=== PATIENT | female | born 1995 | race Caucasian/White ===

== ENCOUNTER 2018-10-16 14:55 | Inpatient (IN) | payer SELFPAY ==
[2018-10-16 15:47] VITALS: BMI 29.4
[2018-10-16 16:29] LABS: BASO % 0.1 % (0.0-2.0); EOS % 0.3 % (0.0-4.0); HEMOGLOBIN 12.4 g/dL (11.0-16.0); LYMPH # 1.9 K/uL (1.0-4.3); MEAN CELL VOLUME 75.7 fL (81.0-99.0); MEAN CORPUSCULAR HGB CONC 31.8 g/dL (33.0-37.0); MEAN PLATELET VOLUME 8.3 fL (7.2-11.7); MONO # 0.7 K/uL (0.0-0.8); MONO % 5.9 % (0.0-10.0); NEUT # 9.3 K/uL (1.8-7.0); NEUT % 77.7 % (50.0-75.0); RBC 5.15 Mil/uL (3.80-5.20); RED CELL DISTRIBUTION WIDTH 18.5 % (11.5-14.5); SQUAMOUS EPITHIAL 1 /hpf (0-5); URINE BILIRUBIN NEGATIVE (NEGATIVE); URINE BLOOD NEGATIVE (NEGATIVE); URINE CLARITY Clear (Clear); URINE COLOR Yellow (YELLOW); URINE GLUCOSE (UA) NORMAL (Normal); URINE LEUKOCYTE ESTERASE NEG Leu/uL (Negative); URINE PROTEIN NEGATIVE (NEGATIVE); URINE UROBILINOGEN NORMAL mg/dL (0.2-1.0); WHITE BLOOD COUNT 11.9 K/uL (4.8-10.8)
[2018-10-16 16:42] LABS: BARBITURATES, UR NEGATIVE (NEGATIVE); BENZODIAZEPINES, UR NEGATIVE (NEGATIVE); OPIATES, UR NEGATIVE (NEGATIVE); PHENCYCLIDINE, UR NEGATIVE (NEGATIVE)
[2018-10-16] MEDS ORDERED: Lactated Ringer's 1,000 ML IV ONE (16:42)
[2018-10-16 16:57] LABS: ALB/GLOB RATIO 1.4 (1.0-2.1); ALBUMIN 3.9 g/dL (3.5-5.0); ALT/SGPT 9 U/L (9-52); AST/SGOT 24 U/L (14-36); BLOOD UREA NITROGEN 6 mg/dL (7-17); CALCIUM 9.2 mg/dl (8.6-10.4); GFR NON-AFRICAN AMERICAN > 60
[2018-10-16] MEDS ORDERED: Oxytocin 30 UNIT in NS 500 ml 30 UNITS/500 ML BAG IV ONE ×2 (17:26→17:55)
[2018-10-16 17:27] LABS: HEPATITIS B SURFACE AG Negative (NEGATIVE)
[2018-10-16] MEDS ORDERED: Lactated Ringer's 1,000 ML IV SCH (17:30)
[2018-10-16] MEDS ORDERED: Penicillin G 5 Million Unit Vial IVPB ONE ×2 (17:34→17:55)
[2018-10-16 17:38] LABS: RAPID PLASMA REAGIN NONREACTIVE (NONREACTIVE)
[2018-10-16] MEDS ORDERED: Fentanyl/Bupivacaine HCl 250 ML EPI ONE (18:26)
--- NOTE | 2018-10-16 18:29 | OBADHP ---
Datetime: 10/16/2018 15:42 Admit Comment, IP Provider: CC: Contractions HPI: Patient is a 22 year old at 38.5 weeks with REY of 10/26/18 by LMP (01/19/18), who presents to [facility] with complaints of contractiins that started last night. Patient states that her contraction s are 5-7 minutes apart lasting for 30 seconds. Patient admits to noted brownish discharge this morni ng. Patient endorses movement but denies leakage of fluid, vaginal bleeding, trauma. Patient a dmits to sexual activity 2 days ago. Care: Dr. Clemons OB Hx: G1: Current, no medical issues Rehabilitation Therapist Hx: Menarche: 13 [facility]: 15/regular/3-4 days Denies Hx of STDs, abnormal pap smear, fibroids and ovarian cyst or abdominal surgery PMHx: Denies PSHx: Denies FHx: Denies Medications: PNV and iron supplements Allergies: NKDA Social Hx: Lives with and mother. Unemployed. Denies any current or former tobacco, ETOH a nd illicit drug use A/P: : Patient is a 22 year old at 38.5 weeks with REY of 10/26/18 by LMP (01/19/18), who presen ts to [facility] with complaints of contractiins that started last night - EFM and TOCO - labs sent as per primary - UA: Negative - SVE - LR bolus - r/o Active labor: Over the course of observation, patient's pain increased in intensity with inf requent contractions. Decision was made by primary to admit to the unit - IV pitocin initiated to augment labor - LR @ 125CC/HR for maintenance fluid - CEFM and [place] - Anesthesia consult as per patient's request All plans and management as per Dr. Clemons and discussed with Dr. Placido Negrete, DO, PGY-2 Agree with above. Plan of care discussed with Dr. Cochran Extremities - PN: Normal Abdomen - PN: Normal Lungs - PN: Normal Heart - PN: Normal General - PN: Normal FHR - Baseline A Provider: 140 Comments, ACOG Physical Exam: Gen: NAD Cardio: RRR, +S1, +S2, no murmurs Pulm: CTA bilaterally, no rales, no wheezing or rhonci Abdomen: Soft, non-tender, gravid Ext: No edema, no cyanosis and no clubbing Gestation - Est Wks by US: 38.5 IP Chief Complaint: Uterine contractions NICHD Variability Prov Fetus A: Moderate 6-25bpm NICHD Accel Fetus A IP Provider: [id number] NICHD Decel Fetus A IP Provider: None Dilatation, Provider: 2 Effacement, Provider: 80 Station, Provider: -3 EGA AdmitDate IP: 38.4 IP Adm Impression: Term, intrauterine IP Admit Plan: Admit to unit; Initiate labor protocol
[2018-10-16] MEDS ORDERED: Lidocaine 2% MPF (5 ml) Inj ONE (18:55)
--- NOTE | 2018-10-16 20:55 | OBPN ---
Datetime: 10/16/2018 20:44 IP Procedures: Artificial ROM; Intrauterine Pressure Catheter IP Progress Plan: Continue present management FHR - Baseline A Provider: 140 IP Progress Note Comment: OB Hospitalist Note: FHR tracing reviewed- late vs early contractions Pt on L lateral side with o2 via facemask unable to monitor contractions- IUPC placed AROM - moderate meconium SVE: 3-/-2 Pitocin held- Dr. Clemons notified. Vital Signs Provider: Reviewed NICHD Accel Fetus A IP Provider: 15X15 NICHD Variability Prov Fetus A: Moderate 6-25bpm NICHD Decel Fetus A IP Provider: Early; Variable Datetime: 10/16/2018 15:42 Gestation - Est Wks by US: 38.5 Dilatation, Provider: 2 Effacement, Provider: 80 Station, Provider: -3
--- NOTE | 2018-10-16 21:48 | OBPN ---
Datetime: 10/16/2018 21:42 IP Progress Impression: Non-reassuring heart rate FHR - Baseline A Provider: 130 IP Progress Note Comment: OB Hospitalist Note: Tracing reviewed - variable decels down to 90 with recovery to baseline Pitocin held/Pt on L lateral side with O2 via facemask without improvement. Dr. Clemons notified of tracing and en route to hospital. Vital Signs Provider: Reviewed NICHD Accel Fetus A IP Provider: 15X15 FHR Category Provider Fetus A: Category II NICHD Variability Prov Fetus A: Moderate 6-25bpm NICHD Decel Fetus A IP Provider: Late; Variable
[2018-10-16] MEDS ORDERED: Morphine 1 mg/ml preservative-free Inj(Duramorph) ONE (22:16)
[2018-10-16] MEDS ORDERED: Sodium Bicarbonate (8.4%) 50 mEq Vial ONE (22:18)
--- NOTE | 2018-10-16 23:11 | OBPN ---
Datetime: 10/16/2018 23:09 IP Progress Impression: Normal progression of labor IP Procedures: Sterile Vag Exam Contraction Comments Provider: q1-4 FHR - Baseline A Provider: 130 IP Progress Note Comment: pt was examined at bed side ve fd/100/0 antocipaye pushing Vital Signs Provider: Reviewed; Within Normal Limits NICHD Accel Fetus A IP Provider: 15X15 NICHD Variability Prov Fetus A: Moderate 6-25bpm Dilatation, Provider: 10 Effacement, Provider: 100 Station, Provider: 0
--- NOTE | 2018-10-16 23:11 | OBADHP ---
Datetime: 10/16/2018 23:09 FHR - Baseline A Provider: 130 Contraction Comments Provider: q1-4 Vital Signs Provider: Reviewed; Within Normal Limits NICHD Variability Prov Fetus A: Moderate 6-25bpm NICHD Accel Fetus A IP Provider: 15X15 Dilatation, Provider: 10 Effacement, Provider: 100 Station, Provider: 0 Datetime: 10/16/2018 21:42 IP Hx Assessment: No Care FHR Category Provider Fetus A: Category II NICHD Decel Fetus A IP Provider: Late; Variable Datetime: 10/16/2018 15:42 EGA AdmitDate IP: 38.4
--- NOTE | 2018-10-16 23:13 | OBDS ---
DELIVERY PERSONNEL Delivery Doctor: Leticia Clemonst MD Anesthesiologist: Herbert MATERNAL INFORMATION Delivery Anesthesia: Epidural Provider Comments: dr froilan baby deliverd i n last end clean 9/9 no mcom LABOR SUMMARY EDC: 10/26/2018 00:00 No. Babies in Womb: 1 Attempted: No Labor Anesthesia: Epidural LABOR INFORMATION Reason for Induction: Not Applicable Oxytocin: Augmentation Group B Beta Strep: Not Done VAGINAL DELIVERY Episiotomy: None Laceration Extension: First Degree Laceration Type: Perineal BABY A INFORMATION Born in Route : No : N/A PRESENTATION/POSITION BABY A Presentation: Cephalic Cephalic Presentation: Vertex Vertex Position: Left Occipital Anterior Breech Presentation: N/A PLACENTA INFORMATION BABY A Placenta Method of Delivery: Spontaneous Placenta Status: Delivered INFORMATION BABY A Gestational Age at Delivery: 38.4 Gestational Status: Term IDENTIFICATION/MEDS BABY A ID Band Number: [id number] Sensor Number: [id number]
[2018-10-16] MEDS ORDERED: Benzocaine/Menthol 20%-0.5% Topical Spray (60 ml) TOP PRN (23:14)
[2018-10-16] MEDS ORDERED: Oxycodone/Acetaminophen 5/325 mg Tab PO PRN ×2 (23:14)
[2018-10-17 07:26] LABS: BASO % 0.3 % (0.0-2.0); EOS % 0.1 % (0.0-4.0); HEMOGLOBIN 12.1 g/dL (11.0-16.0); LYMPH # 1.6 K/uL (1.0-4.3); LYMPH % 11.6 % (20.0-40.0); MEAN CELL VOLUME 75.3 fL (81.0-99.0); MEAN CORPUSCULAR HEMOGLOBIN 24.3 pg (27.0-31.0); MEAN CORPUSCULAR HGB CONC 32.3 g/dL (33.0-37.0); MEAN PLATELET VOLUME 8.1 fL (7.2-11.7); MONO % 7.4 % (0.0-10.0); NEUT # 11.1 K/uL (1.8-7.0); NEUT % 80.6 % (50.0-75.0); NRBC % 0.1 % (0.0-2.0); RBC 4.97 Mil/uL (3.80-5.20); RED CELL DISTRIBUTION WIDTH 18.2 % (11.5-14.5); WHITE BLOOD COUNT 13.8 K/uL (4.8-10.8)
[2018-10-17 09:33] VITALS: RESP 18
[2018-10-18 02:42] VITALS: BP 108/76; PULSE 78; TEMP 98; O2SAT 98
== END 2018-10-17 22:30 | disposition home or self-care (01) | DRG 807 ==
LOC: C.EROB 14:55 → C.4D 17:26 → C.4M 10-17 01:29
PROVIDERS: ADMIT Obstetrics & Gynecology; ATTEND Obstetrics & Gynecology
PROC: 0HQ9XZZ Repair Perineum Skin, External Approach (ICD-10-PCS; principal; 2018-10-16)
PROC: 10E0XZZ Delivery of Products of Conception, External Approach (ICD-10-PCS; 2018-10-16)
DX: O76 Abnormality in fetal heart rate and rhythm complicating labor and delivery (principal); O70.0 First degree perineal laceration during delivery; Z3A.38 38 weeks gestation of pregnancy; Z37.0 Single live birth